=== PATIENT | female | born 1950 | race Caucasian/White ===

== ENCOUNTER 2016-11-01 10:54 | Emergency (ER) | payer OTHER, MEDICAID ==
[2016-11-01 11:02] VITALS: RESP 16; O2SAT 95
[2016-11-01 11:03] VITALS: BP 135/100; PULSE 85; TEMP 99
[2016-11-01 12:35] LABS: % IMMATURE GRANULYOCYTES 0.2 % (0.0-1.1); ABSOLUTE IMMATURE GRANULOCYTES 0.01 10^3/uL (0.00-0.10); ADD DIFF? NO; ADD MORPH? NO; ADD SCAN? NO; ATYPICAL LYMPHOCYTE FLAG 20 (0-99); FRAGMENT RBC FLAG 0 (0-99); HEMATOCRIT 44.9 % (38.0-47.0); HEMOGLOBIN 15.7 g/dL (12.6-16.3); LEFT SHIFT FLG 0 (0-99); LIPEMIA HEMOLYSIS FLAG 90 (0-99); MEAN CELL HEMOGLOBIN 34.3 pg (27.9-34.1); MEAN PLATELET VOLUME 11.2 fL (8.7-11.7); PLATELET CLUMPS FLAG 10 (0-99); PLATELET COUNT 222 10^3/uL (150-400); RED BLOOD CELL COUNT 4.58 10^6/uL (4.18-5.33); RED CELL DISTRIBUTION WIDTH 11.8 % (11.5-15.2)
[2016-11-01 12:40] LABS: ANION GAP 16 mEq/L (8-16); CALCIUM 10.5 mg/dL (8.5-10.4); CARBON DIOXIDE 19 mEq/l (22-31); CHLORIDE 108 mEq/L (97-110); GLOMERULAR FILTRATION RATE 56; GLUCOSE 94 mg/dL (70-100); POTASSIUM 4.6 mEq/L (3.5-5.2); SODIUM 143 mEq/L (134-144)
[2016-11-01 12:51] LABS: TROPONIN I < 0.012 ng/mL (0-0.034)
[2016-11-01 13:12] LABS: COLOR YELLOW; LEUKOCYTE ESTERASE,URINE 1+ (NEGATIVE); NITRITE,URINE POSITIVE (NEGATIVE)
[2016-11-01 13:18] LABS: BACTERIA 4+ /hpf (NONE SEEN); MUCUS TRACE /lpf (NONE-1+); WBC,URINE 25-50 /hpf (0-3)
--- NOTE | 2016-11-01 13:38 | EDPHY ---
HPI/HX/ROS/PE/MDM Narrative: CHIEF COMPLAINT: "I am fine. I don't know why I am here." HISTORY OF PRESENT ILLNESS: This is a 66 year old female brought in by EMS. She lives in a secure dementia care unit and was brought to ED due to acute AMS. Per the care facility, patient had an abrupt episode of confusion today lasting 15 minutes. On my exam , the patient states she lives in [place], in her own home, and can provide no other history. Records from long term do not indicate why patient was sent to ED. Records indicate alcholism history, dementia and history of MS. No history of falls, fever, vomiting or diarrhea, chest pain or respiratory complaints per EMS. REVIEW OF SYSTEMS: Unobtainable. 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 VITAL SIGNS: Reviewed by me GENERAL: Well-developed, well-nourished, dressed neatly and well groomed. Ambulatory about the ED stating nothing is wrong and she'd like to go home. HEENT: Atraumatic. Eyes: No icterus, no injection. PERRL, EOMI. Mouth: moist mucous membranes. No erythema or lesions. Neck: supple with no adenopathy. LUNGS: Clear to auscultation bilaterally, no wheezes, rhonchi or rales. CARDIAC: Regular rate and rhythm, no rubs, murmurs or gallops. ABDOMEN: Soft, nontender, nondistended, bowel sounds normal. BACK: No CVA tenderness. EXTREMITIES: No trauma. No edema. Range of motion is normal throughout. NEURO: Alert, oriented only to person. SOLORZANO x 4, follows simple commands. Sensation appears intact. SKIN: Warm and dry, no rash. PSYCHIATRIC: Slight agitation. Portions of this note were transcribed by a medical equipment repairer. I personally performed a history, physical exam, medical decision making, and confirmed accuracy of information the transcribed note. ED Course: 66 year old presenting with a vague history of AMS while at memory care facility. Nonfocal exam here. No signs of trauma. Stable vital signs. Will CT head and obtain lab and urine. CT negative for acute findings. Labs largely unremarkable, except for bicarb of 19. Troponin neg. UA reveals likely urinary tract infection. Plan to discharge home in good condition with prescription for Keflex. Information relayed to long term staff and POA. MDM: After the history was obtained and physical exam performed, the following differential for the patient's altered mental status was considered included but was not limited to hypoglycemia, electrolyte disturbances, intracranial hemorrhage, infection, tumor, drug or alcohol intoxication, stroke, or TIA. - Data Points Laboratory Results: Laboratory Results 11/01/16 Unknown 11/01/16 Unknown Medications Given: Discontinued Medications Ceftriaxone Sodium/Dextrose (Rocephin 1 Gm (Premix)) 50 mls @ 100 mls/hr IV EDNOW ONE PRN Reason: Protocol Stop: 11/01/16 14:02 Last Admin: 11/01/16 14:06 Dose: 50 mls General Time Seen by Provider: 11/01/16 11:35 Initial Vital Signs: Initial Vital Signs Heart Rate 70 11/01/16 11:00 Respiratory Rate 16 11/01/16 11:00 Blood Pressure 130/70 H 11/01/16 11:00 O2 Sat (%) 95 11/01/16 11:00 O2 Delivery Mode Room Air Allergies/Adverse Reactions: No Known Allergies Allergy (Verified 04/02/15 09:33) Home Medications: Medication Instructions Recorded Cephalexin [Keflex (RX)] 500 mg PO TID 7 Days 11/01/16 Departure - Departure Disposition: Home, Routine, Self-Care Clinical Impression: Urinary tract infection, Confusion Condition: Good Instructions: Urinary Tract Infection in Women (ED) Additional Instructions: 1. Take your Keflex as prescribed. It is important that you finish your entire course of antibiotics. 2. Follow up with your primary care physician this week for continued management of symptoms. 3. Return to the emergency department if you develop fever, chills, vomiting, abdominal pain, or other worsening of condition. Referrals: MARVIN GONZÁLES [Primary Care Provider] - As per Instructions Prescriptions: Cephalexin [Keflex (RX)] 500 mg PO TID 7 Days Report Scribed for: Rita Sinclair Report Scribed by: Amanda Ramires Date of Report: 11/01/16 Time of Report: 13:36
== END 2016-11-01 14:54 | disposition home or self-care (01) ==
LOC: EDUNIT#
DX: N39.0 Urinary tract infection, site not specified (principal); B96.1 Klebsiella pneumoniae [K. pneumoniae] as the cause of diseases classified elsewhere; R41.0 Disorientation, unspecified
CPT/HCPCS: 70450; 96374; 99285; J0696

== ENCOUNTER 2017-03-18 18:26 | Emergency (ER) | payer OTHER, MEDICAID ==
--- NOTE | 2017-03-18 18:27 | EDPHY ---
H & P Constitutional: Initial Vital Signs Temperature (C) 36.9 C 03/18/17 18:30 Allergies/Adverse Reactions: No Known Allergies Allergy (Verified 04/02/15 09:33) Home Medications: Medication Instructions Recorded Cephalexin [Keflex (RX)] 500 mg PO TID 7 Days cap 11/01/16 Medical Decision Making ED Course/Re-evaluation: CHIEF COMPLAINT: "I don't know why I'm here" HISTORY OF PRESENT ILLNESS: The patient is a 67 y/o female arriving via EMS from [facility] for supposed altered mentation. Upon assessment she tells me she has no idea why she's here and denies any complaints. She states, "I feel like a million bucks." She is declining any further assessment and would like to return home to her facility. REVIEW OF SYSTEMS: A 10 point review of systems was performed and is negative with the exception of the elements mentioned in the history of present illness. PHYSICAL EXAM: HR, BP, O2 Sat, RR. Temp noted General Appearance: Alert, well hydrated, appropriate, and non-toxic appearing. Head: Atraumatic without scalp tenderness or obvious injury Eyes: Pupils equal, round, reactive to light and accommodation, EOMI, no trauma , no injection. Nose: Atraumatic, no rhinorrhea, clear. Throat: Mucus membranes moist. Neck: Supple Respiratory: No retractions, no distress, no wheezes, and no accessory muscle use. Lungs are clear to auscultation bilaterally. Cardiovascular: Regular rate and rhythm, no murmurs, rubs, or gallops. Good capillary refill all extremities. Gastrointestinal: Abdomen is soft, nontender, non-distended, no masses, no rebound, no guarding, no peritoneal signs. Musculoskeletal: Normal active ROM of all extremities, atraumatic. Neurological: Alert, appropriate, and interactive. The patient has non-focal cranial nerves, motor, sensory, and cerebellar exam. Skin: No rashes, good turgor, no nodules on palpation. Past medical history: alcoholism Past surgical history: noncontributory Family history: noncontributory Social history: Lives at [facility] DIFFERENTIAL DIAGNOSIS: The differential diagnosis for the patient's altered mental status included but was not limited to hypoglycemia, infectious process, electrolyte abnormality, head injury, neurologic process, anemia, cardiac process, and intoxicants. MEDICAL DECISION MAKING: This is a 67 y/o female with a history of alcoholism who presents via EMS with no complaints nor symptoms. She is completely alert and oriented. She declines further work up here and would like to return home. She will be discharged back to [facility] in stable condition. Departure - Departure Disposition: Home, Routine, Self-Care Clinical Impression: Encounter for medical screening examination, Alcoholism Condition: Good Instructions: Alcohol Use Disorder (ED) Additional Instructions: Follow up with your primary care provider for any unimproved symptoms over the next few days. Referrals: MARVIN GONZÁLES [Primary Care Provider] - As per Instructions Report Scribed for: Cyril Flores Report Scribed by: Zohreh Rhodes Date of Report: 03/18/17 Time of Report: 18:39
[2017-03-18 18:32] VITALS: TEMP 98.4
== END 2017-03-18 19:37 | disposition home or self-care (01) ==
LOC: EDUNIT#
DX: F10.20 Alcohol dependence, uncomplicated (principal)